=== PATIENT | female | born 1955 | race Caucasian/White ===

== ENCOUNTER 2018-04-02 15:52 | Inpatient (IN) ==
[2018-04-02] MEDS ORDERED: ACETAMINOPHEN 325 MG TABLET PO PRN (17:47)
[2018-04-02] MEDS ORDERED: DEXTROSE 50% 25 GM/50 ML VIAL IV PRN (17:47)
[2018-04-02] MEDS ORDERED: GLUCAGON 1 MG VIAL IM PRN (17:47)
[2018-04-02] MEDS: SODIUM CHLOR 0.9% KCL 20 MEQ 20 MEQ/1,000 ML BAG IV SCH (18:39)
[2018-04-02] MEDS: ONDANSETRON 4 MG/2 ML VIAL IV PRN (18:44)
[2018-04-02 18:45] LABS: Apearance,Urine CLEAR (Clear); Bilirubin,Urine Negative (Negative); Blood, Urine Large mg/dL (Negative); Glucose,Urine (UA) Negative (Negative); Ketones,Urine 5 mg/dL (Negative); Nitrite,Urine Negative (Negative); Protein,Urine Negative; RBC,Urine 2 /HPF (0-4); Squamous Epithelial Cell,Urine Occasional /HPF (0-10); Transitional Epi Cells,Urine Occasional /HPF (<1); Urine Color Straw (Yellow); Urine Specific Gravity 1.003 (1.001-1.035); Urine Urobilinogen < 2.0 EU/DL (0.2-1.0); WBC,Urine <1 /HPF (0-6)
[2018-04-02] MEDS ORDERED: TEMAZEPAM 15 MG CAPSULE PO PRN (20:07)
[2018-04-02] MEDS: PANTOPRAZOLE 40 MG VIAL IV SCH (21:01)
[2018-04-02] MEDS ORDERED: ONDANSETRON 4 MG/2 ML VIAL IV PRN (21:12)
[2018-04-02] MEDS ORDERED: ONDANSETRON 4 MG/2 ML VIAL IV ONE (21:12)
[2018-04-02] MEDS: INSULIN REGULAR 100 UNIT/ML SUBCUT SCH (21:24)
[2018-04-03] MEDS: LEVOTHYROXINE 100 MCG VIAL IV SCH (05:49)
[2018-04-03 06:17] LABS: Eosinophils % 0.2 % (0.00-10.9); Hematocrit 28.1 VOL% (35.7-47.0); Hemoglobin 10.5 GM/DL (12.0-16.0); Immature Granulocytes % 0.4 %; Immature Granulocytes Absolute 0.02 #; Lymphocytes # 0.4 10*3/uL (1.4-4.0); Lymphocytes % 7.3 % (21.3-54.2); Mean Corpuscular HGB Conc 37.4 GM/DL (32-36); Mean Corpuscular Hemoglobin 29 PG (27-34); Mean Corpuscular Volume 78.7 FL (87-102); Mean Platelet Volume 10.5 FL (9.6-12.0); Monocytes # 0.7 10*3/uL (0.11-0.8); Monocytes % 11.9 % (1.7-12.7); Neutrophils # 4.4 10*3/uL (1.4-7.4); Neutrophils % 80.2 % (38.7-73.9); Platelet Count 169 T/CUMM (130-400); Red Blood Count 3.57 MC/CUMM (3.8-5.5); White Blood Count 5.5 T/CUMM (4-12)
[2018-04-03 06:33] LABS: Calcium 8.5 MG/DL (8.5-10.1); Osmolality,Calculated 225.2 MOS/KG (273-304)
[2018-04-03 06:35] LABS: Potassium 2.4 MMOL/L (3.5-5.1)
[2018-04-03] MEDS ORDERED: POTASSIUM CHLORIDE 20 MEQ TABLET PO ONE (07:42)
[2018-04-03] MEDS: INSULIN REGULAR 100 UNIT/ML SUBCUT SCH ×4 (08:13→21:34)
[2018-04-03] MEDS: SODIUM CHLOR 0.9% KCL 20 MEQ 20 MEQ/1,000 ML BAG IV SCH (08:14)
[2018-04-03] MEDS: PANTOPRAZOLE 40 MG VIAL IV SCH ×2 (08:15→21:22)
[2018-04-03] MEDS: ONDANSETRON 4 MG/2 ML VIAL IV PRN ×2 (08:29→11:44)
[2018-04-03] MEDS ORDERED: PANTOPRAZOLE 40 MG TABLET PO SCH (09:00)
[2018-04-03] MEDS ORDERED: ESTROGENS (CONJ) 0.625 MG TABLET PO SCH (09:00)
[2018-04-03] MEDS ORDERED: PANTOPRAZOLE 40 MG VIAL IV SCH (09:00)
[2018-04-03] MEDS ORDERED: ESCITALOPRAM 10 MG TABLET PO SCH (09:00)
[2018-04-03 12:20] LABS: Apearance,Urine CLEAR (Clear); Bilirubin,Urine Negative (Negative); Blood, Urine Small mg/dL (Negative); Glucose,Urine (UA) Negative (Negative); Ketones,Urine Negative (Negative); Nitrite,Urine Negative (Negative); Protein,Urine Negative; Squamous Epithelial Cell,Urine Occasional /HPF (0-10); Urine Color Colorless (Yellow); Urine Specific Gravity 1.001 (1.001-1.035); Urine Urobilinogen < 2.0 EU/DL (0.2-1.0); WBC,Urine <1 /HPF (0-6)
[2018-04-03] MEDS ORDERED: SODIUM CHLORIDE 1 GM TABLET PO SCH (16:00)
[2018-04-03 16:07] LABS: Calcium 8.9 MG/DL (8.5-10.1); Osmolality,Calculated 236.3 MOS/KG (273-304); Potassium 3.2 MMOL/L (3.5-5.1)
[2018-04-03] MEDS ORDERED: POTASSIUM CHLORIDE 20 MEQ TABLET PO PRN (16:22)
[2018-04-03 17:52] LABS: Basophils % 0.1 % (0.0-0.8); Eosinophils % 0.1 % (0.00-10.9); Hematocrit 28.7 VOL% (35.7-47.0); Hemoglobin 10.9 GM/DL (12.0-16.0); Immature Granulocytes % 0.3 %; Immature Granulocytes Absolute 0.02 #; Lymphocytes # 0.4 10*3/uL (1.4-4.0); Lymphocytes % 6.1 % (21.3-54.2); Mean Corpuscular Hemoglobin 30 PG (27-34); Mean Corpuscular Volume 79.1 FL (87-102); Mean Platelet Volume 10.3 FL (9.6-12.0); Monocytes # 0.7 10*3/uL (0.11-0.8); Monocytes % 10.4 % (1.7-12.7); Neutrophils # 5.7 10*3/uL (1.4-7.4); Platelet Count 184 T/CUMM (130-400); Red Blood Count 3.63 MC/CUMM (3.8-5.5); White Blood Count 6.9 T/CUMM (4-12)
[2018-04-03] MEDS ORDERED: SODIUM CHLORIDE 0.9% 1,000 ML IV SCH (18:00)
[2018-04-03 18:02] LABS: INR 1.1; PT Patient Result 12.2 SECS; Partial Thromboplastin Time 29.8 SECS (0-40)
[2018-04-03 18:14] LABS: Albumin 3.7 G/DL (3.4-5.0); Bilirubin,Total 0.6 MG/DL (0.2-1.0); Calcium 8.8 MG/DL (8.5-10.1); Osmolality,Calculated 236.3 MOS/KG (273-304); Potassium 2.9 MMOL/L (3.5-5.1); Total Protein 6.8 G/DL (6.4-8.3)
[2018-04-03] MEDS ORDERED: LORazepam 2 MG/1 ML VIAL ONE (18:44)
[2018-04-03] MEDS ORDERED: LORazepam 2 MG/1 ML VIAL IV ONE (18:48)
[2018-04-03] MEDS ORDERED: DEXTROSE 5% 1,000 ML IV SCH ×2 (19:00→22:30)
[2018-04-03] MEDS ORDERED: DILTIAZEM 50 MG/10 ML VIAL IV STA (19:01)
[2018-04-03] MEDS ORDERED: DILTIAZEM 25 MG/5 ML VIAL IV ONE (19:02)
[2018-04-03] MEDS: dilTIAZem Drip 125 MG/125 ML PREMIX IV SCH (19:09)
[2018-04-03] MEDS ORDERED: LABETALOL 20 MG/4 ML SYRINGE IV PRN (19:55)
[2018-04-03] MEDS: DESMOPRESSIN 4 MCG/1 ML AMP IV SCH (21:08)
[2018-04-03] MEDS: ENOXAPARIN 60 MG/0.6 ML SYRINGE SUBCUT SCH (21:20)
[2018-04-03] MEDS: POTASSIUM CHLORIDE 20 MEQ TABLET PO PRN ×2 (21:33→23:45)
[2018-04-03] MEDS ORDERED: DEXTROSE 5% 300 ML IV SCH (22:30)
[2018-04-04] MEDS ORDERED: DEXTROSE 5% 300 ML IV SCH (00:15)
[2018-04-04] MEDS ORDERED: DEXTROSE 5% 1,000 ML IV SCH ×2 (00:15→03:30)
[2018-04-04] MEDS: DEXTROSE 5% IV PRN (00:41)
[2018-04-04] MEDS: PHENYLEPHRINE IV PRN (00:41)
[2018-04-04] MEDS: DESMOPRESSIN 4 MCG/1 ML AMP IV SCH ×4 (02:20→19:00)
[2018-04-04 03:20] LABS: Apearance,Urine CLOUDY (Clear); Bacteria,Urine Occasional /HPF (Few); Bilirubin,Urine Negative (Negative); Blood, Urine Small mg/dL (Negative); Glucose,Urine (UA) Negative (Negative); Ketones,Urine 5 mg/dL (Negative); Mucus,Urine Occasional /LPF (Occasional); Nitrite,Urine Negative (Negative); Protein,Urine Negative; RBC,Urine 2 /HPF (0-4); Squamous Epithelial Cell,Urine Occasional /HPF (0-10); Urine Color Yellow (Yellow); Urine Specific Gravity 1.003 (1.001-1.035); Urine Urobilinogen < 2.0 EU/DL (0.2-1.0); WBC,Urine 2 /HPF (0-6)
[2018-04-04 03:21] LABS: Calcium 8.2 MG/DL (8.5-10.1); Osmolality,Calculated 230.9 MOS/KG (273-304); Potassium 2.6 MMOL/L (3.5-5.1)
[2018-04-04 03:37] LABS: Risk Ratio 1.62
[2018-04-04] MEDS: POTASSIUM CHLORIDE 20 MEQ TABLET PO PRN ×3 (04:52→10:30)
[2018-04-04] MEDS: LEVOTHYROXINE 100 MCG VIAL IV SCH (06:50)
[2018-04-04] MEDS: INSULIN REGULAR 100 UNIT/ML SUBCUT SCH ×4 (08:42→20:54)
[2018-04-04] MEDS ORDERED: ASPIRIN 300 MG SUPP RECTAL SCH (09:00)
[2018-04-04 09:13] LABS: Calcium 8.6 MG/DL (8.5-10.1); Potassium 3.2 MMOL/L (3.5-5.1)
[2018-04-04] MEDS: ENOXAPARIN 60 MG/0.6 ML SYRINGE SUBCUT SCH ×2 (10:31→20:53)
[2018-04-04] MEDS: PANTOPRAZOLE 40 MG VIAL IV SCH (11:27)
[2018-04-04] MEDS: ASPIRIN 325 MG TABLET PO SCH (12:58)
[2018-04-04] MEDS: LORazepam 2 MG/1 ML VIAL IV PRN (13:05)
[2018-04-04 13:46] LABS: Osmolality,Calculated 228.9 MOS/KG (273-304); Potassium 3.7 MMOL/L (3.5-5.1)
[2018-04-04 13:51] LABS: Calcium 8.5 MG/DL (8.5-10.1)
[2018-04-04 15:14] LABS: Calcium 8.6 MG/DL (8.5-10.1); Osmolality,Calculated 229.9 MOS/KG (273-304); Potassium 3.8 MMOL/L (3.5-5.1)
[2018-04-04 19:54] LABS: Calcium 8.6 MG/DL (8.5-10.1); Osmolality,Calculated 231.6 MOS/KG (273-304); Potassium 3.2 MMOL/L (3.5-5.1)
[2018-04-04] MEDS: POTASSIUM CHLORIDE 20 MEQ/15 ML UDCUP PER TUBE PRN ×2 (20:53→23:00)
[2018-04-04] MEDS: dilTIAZem Drip 125 MG/125 ML PREMIX IV SCH (20:54)
[2018-04-04] MEDS ORDERED: LORazepam 2 MG/1 ML VIAL IV ONE (21:53)
[2018-04-04] MEDS ORDERED: ZIPRASIDONE 20 MG/1 ML VIAL IM PRN (22:44)
[2018-04-05] MEDS: DEXTROSE 5% IV PRN
[2018-04-05] MEDS: PHENYLEPHRINE IV PRN
[2018-04-05] MEDS: POTASSIUM CHLORIDE RIDER 10 MEQ in PREMIX 1 EACH IV PRN ×2 (02:30→04:25)
[2018-04-05 04:54] LABS: Calcium 8.4 MG/DL (8.5-10.1); Osmolality,Calculated 231.6 MOS/KG (273-304); Potassium 4.2 MMOL/L (3.5-5.1)
[2018-04-05] MEDS: LEVOTHYROXINE 100 MCG VIAL IV SCH (07:00)
[2018-04-05] MEDS: INSULIN REGULAR 100 UNIT/ML SUBCUT SCH ×4 (08:08→21:02)
[2018-04-05] MEDS: ENOXAPARIN 60 MG/0.6 ML SYRINGE SUBCUT SCH ×2 (09:10→21:02)
[2018-04-05] MEDS: ASPIRIN 325 MG TABLET PO SCH (09:11)
[2018-04-05] MEDS: PANTOPRAZOLE 40 MG TABLET PO SCH (09:11)
[2018-04-05] MEDS ORDERED: MAGNESIUM SULF RIDER 2 GM in PREMIX 1 EACH IV ONE (10:01)
[2018-04-05] MEDS: SODIUM CHLORIDE 3% INJ 500 ML IV SCH (10:02)
[2018-04-05] MEDS: LEVOTHYROXINE 50 MCG TABLET PO SCH (10:25)
[2018-04-05 10:29] LABS: Calcium 8.6 MG/DL (8.5-10.1); Osmolality,Calculated 236.5 MOS/KG (273-304); Potassium 4.1 MMOL/L (3.5-5.1)
[2018-04-05 16:28] LABS: Osmolality,Calculated 235.3 MOS/KG (273-304); Potassium 4.3 MMOL/L (3.5-5.1)
[2018-04-05] MEDS: METOPROLOL SUCCINATE XL 50 MG TABLET PO SCH (18:54)
[2018-04-05] MEDS: dilTIAZem Drip 125 MG/125 ML PREMIX IV SCH (20:16)
[2018-04-05] MEDS: TEMAZEPAM 15 MG CAPSULE PO PRN (21:01)
[2018-04-05] MEDS: levETIRAcetam 500 MG TABLET PO SCH (21:02)
[2018-04-05 23:23] LABS: Calcium 7.8 MG/DL (8.5-10.1); Osmolality,Calculated 237.2 MOS/KG (273-304); Potassium 4.3 MMOL/L (3.5-5.1)
[2018-04-06] MEDS: ENOXAPARIN 60 MG/0.6 ML SYRINGE SUBCUT SCH (09:02)
[2018-04-06] MEDS: INSULIN REGULAR 100 UNIT/ML SUBCUT SCH ×4 (09:02→21:39)
[2018-04-06] MEDS: ASPIRIN 325 MG TABLET PO SCH (09:05)
[2018-04-06] MEDS: levETIRAcetam 500 MG TABLET PO SCH ×2 (09:05→21:10)
[2018-04-06] MEDS: PANTOPRAZOLE 40 MG TABLET PO SCH (09:05)
[2018-04-06] MEDS: LEVOTHYROXINE 50 MCG TABLET PO SCH (09:05)
[2018-04-06] MEDS: METOPROLOL SUCCINATE XL 50 MG TABLET PO SCH (09:06)
[2018-04-06] MEDS: SODIUM CHLORIDE 3% INJ 500 ML IV SCH ×2 (11:50→12:00)
[2018-04-06] MEDS ORDERED: SODIUM CHLORIDE 3% INJ 500 ML IV SCH (15:30)
[2018-04-06] MEDS: diphenhydrAMINE 50 MG/1 ML VIAL IV PRN (20:00)
[2018-04-06] MEDS: ENOXAPARIN 40 MG/0.4 ML SYRINGE SUBCUT SCH (21:10)
[2018-04-06] MEDS: TEMAZEPAM 15 MG CAPSULE PO PRN (21:10)
[2018-04-06] MEDS ORDERED: DESMOPRESSIN 4 MCG/1 ML AMP IV ONE (23:00)
[2018-04-06] MEDS ORDERED: DEXTROSE 5% 250 ML IV SCH (23:00)
[2018-04-07 04:50] LABS: Calcium 8.4 MG/DL (8.5-10.1); Osmolality,Calculated 256.8 MOS/KG (273-304); Potassium 4.2 MMOL/L (3.5-5.1)
[2018-04-07] MEDS: diphenhydrAMINE 50 MG/1 ML VIAL IV PRN ×2 (05:13→11:34)
[2018-04-07] MEDS: INSULIN REGULAR 100 UNIT/ML SUBCUT SCH ×4 (08:36→21:42)
[2018-04-07] MEDS: LEVOTHYROXINE 50 MCG TABLET PO SCH (09:02)
[2018-04-07] MEDS: ASPIRIN 325 MG TABLET PO SCH (09:02)
[2018-04-07] MEDS: PANTOPRAZOLE 40 MG TABLET PO SCH (09:03)
[2018-04-07] MEDS: METOPROLOL SUCCINATE XL 50 MG TABLET PO SCH (09:03)
[2018-04-07] MEDS: levETIRAcetam 250 MG TABLET PO SCH (09:03)
[2018-04-07] MEDS ORDERED: cefTRIAXone 1,000 MG in SYRINGE 1 EACH IV SCH (12:30)
[2018-04-07] MEDS ORDERED: NON-FORMULARY MEDICATION (Temazepam [Temazepam] 30 MG) PO PRN (13:07)
[2018-04-07] MEDS: LORazepam 2 MG/1 ML VIAL IV PRN (13:15)
[2018-04-07] MEDS ORDERED: LORazepam 1 MG TABLET PO PRN (13:33)
[2018-04-07] MEDS: SODIUM CHLORIDE 3% INJ 500 ML IV SCH ×2 (14:11→17:59)
[2018-04-07] MEDS: ONDANSETRON 4 MG/2 ML VIAL IV PRN (15:15)
[2018-04-07] MEDS ORDERED: VANCOMYCIN INJ 1,000 MG in SODIUM CHLORIDE 0.9% 250 ML IV ONE (19:00)
[2018-04-07] MEDS: TRIAMCINOLONE 0.1% OINT 15 GM TUBE TOP SCH (21:41)
[2018-04-07] MEDS: OXYBUTYNIN 5 MG TABLET PO PRN (21:41)
[2018-04-07] MEDS: TEMAZEPAM 15 MG CAPSULE PO PRN (21:41)
[2018-04-07] MEDS: levETIRAcetam 500 MG TABLET PO SCH (21:42)
[2018-04-07] MEDS: ENOXAPARIN 40 MG/0.4 ML SYRINGE SUBCUT SCH (21:42)
[2018-04-08 05:34] LABS: Calcium 8.5 MG/DL (8.5-10.1); Osmolality,Calculated 262.4 MOS/KG (273-304); Potassium 4.7 MMOL/L (3.5-5.1)
[2018-04-08] MEDS: INSULIN REGULAR 100 UNIT/ML SUBCUT SCH ×2 (09:32→14:39)
[2018-04-08] MEDS: ASPIRIN 325 MG TABLET PO SCH (09:42)
[2018-04-08] MEDS: LEVOTHYROXINE 50 MCG TABLET PO SCH (09:43)
[2018-04-08] MEDS: levETIRAcetam 250 MG TABLET PO SCH (09:43)
[2018-04-08] MEDS: PANTOPRAZOLE 40 MG TABLET PO SCH (09:43)
[2018-04-08] MEDS: OXYBUTYNIN 5 MG TABLET PO PRN (09:44)
[2018-04-08] MEDS: METOPROLOL SUCCINATE XL 50 MG TABLET PO SCH (09:45)
[2018-04-08] MEDS: TRIAMCINOLONE 0.1% OINT 15 GM TUBE TOP SCH ×2 (09:48→21:45)
[2018-04-08] MEDS: diphenhydrAMINE 50 MG/1 ML VIAL IV PRN (12:29)
[2018-04-08] MEDS: NORTRIPTYLINE 25 MG CAPSULE PO SCH ×2 (14:48→21:45)
[2018-04-08] MEDS ORDERED: AMOXICILLIN/CLAV 500 MG TABLET PO ONE (17:23)
[2018-04-08] MEDS: ENOXAPARIN 40 MG/0.4 ML SYRINGE SUBCUT SCH (21:45)
[2018-04-08] MEDS: AMOXICILLIN/CLAV 500 MG TABLET PO SCH (21:45)
[2018-04-08] MEDS: TEMAZEPAM 15 MG CAPSULE PO PRN (21:45)
[2018-04-09 05:47] LABS: Calcium 8.3 MG/DL (8.5-10.1); Potassium 4.4 MMOL/L (3.5-5.1)
[2018-04-09] MEDS: ASPIRIN 325 MG TABLET PO SCH (09:52)
[2018-04-09] MEDS: AMOXICILLIN/CLAV 500 MG TABLET PO SCH ×3 (09:52→18:34)
[2018-04-09] MEDS: LEVOTHYROXINE 50 MCG TABLET PO SCH (09:52)
[2018-04-09] MEDS: PANTOPRAZOLE 40 MG TABLET PO SCH (09:52)
[2018-04-09] MEDS: NORTRIPTYLINE 25 MG CAPSULE PO SCH ×2 (09:52→20:50)
[2018-04-09] MEDS: ONDANSETRON 4 MG/2 ML VIAL IV PRN (09:57)
[2018-04-09] MEDS: METOPROLOL SUCCINATE XL 50 MG TABLET PO SCH (10:04)
[2018-04-09] MEDS: TRIAMCINOLONE 0.1% OINT 15 GM TUBE TOP SCH ×2 (10:06→20:59)
[2018-04-09] MEDS: TEMAZEPAM 15 MG CAPSULE PO PRN (20:50)
[2018-04-10 05:28] LABS: Calcium 8.6 MG/DL (8.5-10.1); Potassium 4.3 MMOL/L (3.5-5.1)
[2018-04-10] MEDS: PANTOPRAZOLE 40 MG TABLET PO SCH (09:41)
[2018-04-10] MEDS: METOPROLOL SUCCINATE XL 50 MG TABLET PO SCH (09:41)
[2018-04-10] MEDS: ASPIRIN 325 MG TABLET PO SCH (09:41)
[2018-04-10] MEDS: LEVOTHYROXINE 50 MCG TABLET PO SCH (09:41)
[2018-04-10] MEDS: AMOXICILLIN/CLAV 500 MG TABLET PO SCH ×2 (09:41→12:42)
[2018-04-10] MEDS: NORTRIPTYLINE 25 MG CAPSULE PO SCH (09:41)
[2018-04-10 12:20] VITALS: BP 130/67
[2018-04-10] MEDS: TRIAMCINOLONE 0.1% OINT 15 GM TUBE TOP SCH (12:36)
== END 2018-04-10 13:14 | disposition home or self-care (01) | DRG 644 ==
LOC: SUATTDRO 16:30 → N.5E 16:30 → N.CC 04-03 17:46 → N.4E 04-09 14:42
PROVIDERS: ADMIT Internal Medicine; ATTEND Family Medicine